=== PATIENT | male | born 1980 | race Native Hawaiian/Other Pacific Islander ===

== ENCOUNTER 2021-06-18 01:54 | Emergency (ER) | payer OTHER ==
[~2021-06-18] VITALS: Ht 182.9 cm; Wt 111.6 kg
[2021-06-18 02:00] VITALS: BP 154/100; TEMP 99.2
[2021-06-18 03:07] LABS: POTASSIUM 3.7 mmol/L (3.6-5.2)
[2021-06-18 03:14] LABS: PLATELET COUNT 253 K/uL (142-355)
== END 2021-06-18 03:34 | disposition home or self-care (01) ==
LOC: ED 01:54
PROVIDERS: Emergency Medicine
DX: R14.0 Abdominal distension (gaseous) (principal); I10 Essential (primary) hypertension; B96.81 Helicobacter pylori [H. pylori] as the cause of diseases classified elsewhere
CPT/HCPCS: 36415; 80048; 85027; 99283

== ENCOUNTER 2021-07-03 09:51 | Outpatient (CLI) | payer OTHER | END 2021-07-03 20:07 | disposition home or self-care (01) | LOC: LABW 09:51 | PROVIDERS: ATTEND Physician Assistant | DX: I26.99 Other pulmonary embolism without acute cor pulmonale (principal); R91.8 Other nonspecific abnormal finding of lung field; R76.8 Other specified abnormal immunological findings in serum | CPT/HCPCS: 36415; 81241; 85303; 85306; 85613; 86147; 86225; 86235; 86331; 86602; 86606; 86671 ==

== ENCOUNTER 2021-07-28 11:20 | Outpatient (CLI) | payer OTHER | END 2021-07-28 20:50 | disposition home or self-care (01) | LOC: US 11:20 | PROVIDERS: ATTEND Registered Nurse | DX: R07.89 Other chest pain (principal); R10.11 Right upper quadrant pain ==

== ENCOUNTER 2021-08-15 07:32 | Outpatient (CLI) | payer OTHER | END 2021-08-15 20:30 | disposition home or self-care (01) | LOC: NM 07:32 | PROVIDERS: ATTEND Registered Nurse | DX: R10.11 Right upper quadrant pain (principal) | CPT/HCPCS: A9537 ==

== ENCOUNTER 2022-05-20 08:28 | Outpatient (CLI) | payer OTHER | END 2022-05-20 18:55 | disposition home or self-care (01) | LOC: RAD 08:28 | PROVIDERS: ATTEND Nurse Practitioner Family | DX: M54.6 Pain in thoracic spine (principal) ==

== ENCOUNTER 2022-05-29 09:49 | Outpatient (CLI) | payer OTHER | END 2022-05-29 18:55 | disposition home or self-care (01) | LOC: RESP 09:49 | PROVIDERS: ATTEND Nurse Practitioner Family | DX: R00.1 Bradycardia, unspecified (principal) | CPT/HCPCS: 93005; 93225 ==